=== PATIENT | female | born 1980 | race Caucasian/White ===

== ENCOUNTER 2022-12-23 12:55 | Emergency (ER) | payer MEDICARE, OTHER ==
[~2022-12-23] VITALS: Ht 165.1 cm; Wt 65.8 kg
--- NOTE | 2022-12-23 13:14 | NUR ---
42 years old female quadruplegic quoc baording care sent to er for abdominal pain exacerbation denies nausea vomiting.
[2022-12-23 13:18] LABS: HEMATOCRIT 32.6 % (31.2-41.9); MEAN CORPUSCULAR HEMOGLOBIN 26.4 uug (24.7-32.8); MEAN CORPUSCULAR VOLUME 79.5 fL (75.5-95.3); PLATELET COUNT (AUTO) 159 K/uL (179-408)
[2022-12-23 13:28] LABS: CARBON DIOXIDE 25 mmol/L (21-32); CHLORIDE 99 mmol/L (98-107); CREATININE 0.3 mg/dL (0.6-1.3); GLUCOSE 105 mg/dL (74-106); POTASSIUM 3.3 mmol/L (3.5-5.1); UREA NITROGEN, BLOOD 12 mg/dL (7-18)
[2022-12-23 13:40] LABS: ALANINE AMINOTRANSFERASE 29 U/L (14-59); ALKALINE PHOSPHATASE 79 U/L (50-136); ASPARTATE AMINOTRANSFERASE 22 U/L (15-37); BILIRUBIN,DIRECT 0.2 mg/dL (0.0-0.2); BILIRUBIN,TOTAL 0.7 mg/dL (0.2-1.0); LIPASE 28 U/L (73-393); TOTAL PROTEIN, SERUM 5.7 g/dL (6.4-8.2)
[2022-12-23] MEDS ORDERED: IV NORMAL SALINE 1000 ML BAG IV ONE (14:00)
[2022-12-23] MEDS ORDERED: POTASSIUM CHLORIDE 20 MEQ TAB.PRT.SR PO ONE (14:30)
[2022-12-23] MEDS ORDERED: BACLOFEN 10 MG TABLET PO ONE (14:30)
[2022-12-23] MEDS ORDERED: GABAPENTIN 300 MG CAPSULE PO ONE (14:30)
[2022-12-23] MEDS ORDERED: POTASSIUM CHLORIDE 20 MEQ TAB.PRT.SR ONE (14:55)
[2022-12-23] MEDS ORDERED: GABAPENTIN 300 MG CAPSULE ONE (14:55)
[2022-12-23] MEDS ORDERED: BACLOFEN 10 MG TABLET ONE (14:56)
[2022-12-23 15:26] LABS: *BILIRUBIN,URIN NEGATIVE (NEGATIVE); *BLOOD, URINE 3+ (NEGATIVE); *CLARITY,URINE TURBID (CLEAR); *COLOR,URINE YELLOW (YELLOW); *KETONES,URINE NEGATIVE (NEGATIVE); *UROBILINOGEN,URINE 0.2 E.U./dl (NORMAL); LEUKOCYTE ESTERASE ,URINE 3+ (NEGATIVE); NITRITE, URINE POSITIVE (NEGATIVE); UGLUCOSE NEGATIVE (NEGATIVE)
--- NOTE | 2022-12-23 15:30 | NUR ---
patient reassess no breakthrough pain vss urine collected sent.
[2022-12-23] MEDS ORDERED: CEFTRIAXONE 1 G in IV DEXTROSE 5% 50 ML IV ONE (15:45)
[2022-12-23] MEDS ORDERED: CEFTRIAXONE /D5W 50ML IVPB **ER PYXIS IV ONE (15:46)
[2022-12-23] MEDS ORDERED: CIPR-262 PO (17:52)
[2022-12-23] MEDS ORDERED: SENN8.6T19 PO (17:55)
[2022-12-23 17:58] LABS: BACTERIA,URINE MANY /HPF (NONE SEEN); SQUAMOUS EPITHELIAL CELL,UR MANY /HPF (NONE SEEN); WBC,URINE 20-50 /HPF (0-3)
[2022-12-23 17:59] LABS: RBC,URINE 20-50 /HPF (0-3); URINE AMORPHOUS URATE MODERATE /HPF
[2022-12-23] MEDS ORDERED: MIRALAX 17 GM POWD.PACK PO ONE (18:00)
[2022-12-23] MEDS ORDERED: MIRALAX 17 GM POWD.PACK ONE (18:04)
[2022-12-23 18:18] VITALS: BP 90/60
--- NOTE | 2022-12-23 18:19 | NUR ---
patient alert, oriented x4 condition stable d/c home with instructions after care reviewed understood left er via [facility].
== END 2022-12-23 18:44 ==
LOC: ER 12:55
DX: R10.9 Unspecified abdominal pain (principal); K59.00 Constipation, unspecified; N39.0 Urinary tract infection, site not specified; G82.50 Quadriplegia, unspecified; S14.153S Other incomplete lesion at C3 level of cervical spinal cord, sequela; X58.XXXS Exposure to other specified factors, sequela
CPT/HCPCS: 99285; 74176; 96365; 71045; 80076; 80048; 81001; 83690; 85025; 36415; 83605; 87040; J0696; A4663